=== PATIENT | female | born 1970 | race African-American/Black ===

== ENCOUNTER → 2016-06-10 16:17 | Outpatient (CLI) | payer BC | END | disposition home or self-care (01) | LOC: D.MAMMO 08:15 | DX: Z12.31 Encounter for screening mammogram for malignant neoplasm of breast (principal) ==

== ENCOUNTER → 2018-03-01 18:02 | Outpatient (CLI) | payer OTHER | END | disposition home or self-care (01) | LOC: D.LABREF 18:02 | DX: R31.9 Hematuria, unspecified (principal); D72.829 Elevated white blood cell count, unspecified ==

== ENCOUNTER → 2018-03-14 10:22 | Outpatient (CLI) | payer OTHER | END | disposition home or self-care (01) | LOC: D.CT 10:22 | DX: R31.21 Asymptomatic microscopic hematuria (principal) ==

== ENCOUNTER → 2018-03-21 17:31 | Outpatient (CLI) | payer OTHER | END | disposition home or self-care (01) | LOC: D.LABREF 17:31 | DX: R31.9 Hematuria, unspecified (principal); D72.829 Elevated white blood cell count, unspecified ==